=== PATIENT | female | born 1985 | race American Indian/Alaskan Native ===

== ENCOUNTER 2021-07-11 15:17 | Emergency (ER) | payer OTHER ==
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
[2021-07-11 15:45] VITALS: BP 138/84
== END 2021-07-11 16:41 | disposition home or self-care (01) ==
LOC: ED 15:17
DX: S13.9XXA Sprain of joints and ligaments of unspecified parts of neck, initial encounter (principal); S63.591A Other specified sprain of right wrist, initial encounter; Z79.899 Other long term (current) drug therapy; V87.7XXA Person injured in collision between other specified motor vehicles (traffic), initial encounter; Y93.89 Activity, other specified; Y92.488 Other paved roadways as the place of occurrence of the external cause; Y99.8 Other external cause status
CPT/HCPCS: 99282; 99283